=== PATIENT | male | born 1935 | race Two or more races ===

== ENCOUNTER 2018-08-03 08:53 | Emergency (ER) | payer MEDICARE, OTHER ==
[~2018-08-03] VITALS: Ht 165.1 cm; Wt 63.9 kg
--- NOTE | 2018-08-03 09:15 | NUR ---
Pt to ER for dizziness & n/v onset this morning. Dizziness does not increase when he turns head. Denies PADILLA, CP or SOB. EKG done at time of arrival in triage. Placed on cardiac, NIBP & SpO2 monitors. Started metformin recently-checked glucose @ home: 124. @ [facility].
[2018-08-03] MEDS ORDERED: SODIUM CHLORIDE 0.9% 1,000 ML IV ONE (09:17)
[2018-08-03] MEDS ORDERED: MECLIZINE CHEWABLE 25 MG TAB PO ONE (09:30)
[2018-08-03] MEDS ORDERED: ONDANSETRON 2MG/ML, 2ML IVPush ONE (09:30)
[2018-08-03 09:41] LABS: BASOPHILS # (AUTO) 0.04 x10^3/uL (0-0.1); BASOPHILS % (AUTO) 0 % (0-1); EOSINOPHILS % (AUTO) 2 % (1-7); LYMPHOCYTES # (AUTO) 1.26 x10^3/uL (1-3.4); LYMPHOCYTES % (AUTO) 14 % (22-44); MD NO; MEAN CORPUSCULAR HEMOGLOBIN 30.2 pg (27.5-34.5); MEAN CORPUSCULAR HGB CONC 33.1 g/dL (33.2-36.2); MEAN CORPUSCULAR VOLUME 91.3 fL (81-97); MEAN PLATELET VOLUME 8.1 fL (7.4-10.4); MONOCYTES # (AUTO) 0.47 x10^3/uL (0.2-0.8); MONOCYTES % (AUTO) 5 % (2-9); NEUTROPHILS # (AUTO) 7.25 x10^3/uL (1.8-6.8); NEUTROPHILS % (AUTO) 79 % (42-75); PLATELET COUNT 309 x10^3/uL (130-400); RED BLOOD COUNT 4.89 x10^6/uL (4.38-5.82); RED CELL DISTRIBUTION WIDTH 14.4 % (9.4-14.8)
[2018-08-03] MEDS ORDERED: MECLIZINE CHEWABLE 25 MG TAB ONE (09:44)
[2018-08-03] MEDS ORDERED: ONDANSETRON 2MG/ML, 2ML ONE (09:44)
[2018-08-03 09:45] LABS: ALBUMIN 4.1 g/dL (3.4-5.0); ANION GAP 4 mmol/L (5-15); CALCIUM 8.8 mg/dL (8.5-10.1); CHLORIDE 107 mmol/L (98-107); CREATININE 1.22 mg/dL (0.7-1.3)
[2018-08-03 09:49] LABS: TROPONIN I < 0.015 ng/mL (0.000-0.045)
--- NOTE | 2018-08-03 10:00 | NUR ---
CT head complete- pt vomited clear gastric content <100cc while in CT.
--- NOTE | 2018-08-03 10:08 | NUR ---
Pt medicated as per emar for nausea & dizziness. Urinal @ [facility]-pt aware sample needed.
--- NOTE | 2018-08-03 10:49 | NUR ---
Continue to wait for urine. Pt aware & will press call light when able to void.
[2018-08-03 11:08] LABS: MICROSCOPIC NOT IND
[2018-08-03 11:41] VITALS: BP 123/56
--- NOTE | 2018-08-03 11:41 | NUR ---
Repositioned to sitting on side of bed. No dizziness, no n/v.
--- NOTE | 2018-08-03 12:16 | NUR ---
Patient given discharge instructions and they have confirmed that they understand the instructions. Patient ambulatory with steady gait.
== END 2018-08-03 12:20 | disposition home or self-care (01) ==
LOC: ED 12:14
DX: R42 Dizziness and giddiness (principal); E11.9 Type 2 diabetes mellitus without complications; I10 Essential (primary) hypertension; N40.0 Benign prostatic hyperplasia without lower urinary tract symptoms; Z88.1 Allergy status to other antibiotic agents; Z79.899 Other long term (current) drug therapy; Z79.84 Long term (current) use of oral hypoglycemic drugs
CPT/HCPCS: 36415; 70450; 71045; 80048; 81003; 82040; 83880; 84484; 85025; 93005; 96361; 96374; 99284; J2405; J7030